=== PATIENT | female | born 1950 | race Caucasian/White ===

== ENCOUNTER 2017-12-25 08:00 | Outpatient (RCR) | payer MEDICARE, OTHER ==
--- NOTE | 2017-12-25 09:32 | RADIOLOGY IMAGING REPORT ---
FACILITY: [facility] PATIENT NAME: May Ying : 1950 MR: [id number] V: [id number] EXAM DATE: ORDERING PHYSICIAN: SERVANOD MORALES TECHNOLOGIST: Location: [facility] Patient: May Ying : 1950 Visit/Account:[id number] Date of Sevice: 12/25/2017 PELVIC HISTORY: Pelvic and perineal pain, family history of ovarian cancer TECHNIQUE: Transabdominal and transvaginal ultrasound pelvis. COMPARISON: January 26, 2016 FINDINGS: Uterus: ; 5.6 cm length x 2.2 cm AP x 3.1 cm transverse. Myometrium: Unremarkable. Endometrium: Thin and homogeneous; double thickness 1.1 mm. Incidentally noted is a 1 cm Fabi's duct cyst in the vagina Cervix: There is a 1.1 x 1.1 x 0.7 cm hypoechoic structure within the cervix with internal echoes pos sibly a debris-filled cyst. Ovaries: Right - 1.3 x 1.6 x 1.2 cm Left - surgically removed Blood flow is documented in the right ovary by duplex Doppler ultrasound. Adnexa: Grossly unremarkable. Free pelvic fluid: None. IMPRESSION: Atrophic uterus and right ovary. Postsurgical changes from a left oophorectomy 1.1 cm Fabi duct cyst in the vagina 1.1 cm hypoechoic structure within the cervix with internal echoes which may represent a debris-fille d cyst Report Dictated By: Bella Zapien MD at 12/25/2017 9:24 AM Report E-Signed By: Bella Zapien MD at 12/25/2017 9:28 AM WSN:[id number]
== END 2017-12-25 18:00 | disposition home or self-care (01) ==
LOC: US 08:00
PROVIDERS: ATTEND Nurse Practitioner Psychiatric/Mental Health
DX: R10.2 Pelvic and perineal pain (principal); N85.8 Other specified noninflammatory disorders of uterus; N83.331 Acquired atrophy of right ovary and fallopian tube; N89.8 Other specified noninflammatory disorders of vagina
CPT/HCPCS: 76856

== ENCOUNTER → 2018-03-12 | Outpatient (CLI) | payer MEDICARE, OTHER ==
--- NOTE | 2018-03-13 10:48 | RADIOLOGY IMAGING REPORT ---
FACILITY: [facility] PATIENT NAME: AUGIE LI : [id number] MR: [id number] V: [id number] EXAM DATE: [id number] ORDERING PHYSICIAN: SERVANDO MORALES TECHNOLOGIST: Lisa Byers PROCEDURE:BILATERAL DIGITAL SCREENING MAMMOGRAM WITH CAD ASSISTED INTERPRETATION & 3D TOMOSYNTHESIS COMPARISON:Prior mammograms 03/06/17, 02/16/16, 02/01/15, 01/28/14, 01/15/13, 01/08/12. INDICATIONS:screening FINDINGS: Moderately dense fibroglandular tissue is seen throughout the breasts. The parenchymal pattern has remained stable allowing for difference in mammographic technique & patient positioning. There is no evidence of malignant appearing mass, malignant appearing calcifications or other secondary sign of malignancy in either breast. DIAGNOSTIC CATEGORY 1--NEGATIVE. RECOMMENDATIONS: ROUTINE MAMMOGRAM AND CLINICAL EVALUATION. IMPRESSION: BIRADS 1: Negative. No significant abnormality is seen. Dictated by: Bella Zapien M.D. on 03/12/2018 at 14:36 Transcribed by: ROBERT on 03/12/2018 at 14:43 Approved by: Bella Zapien M.D. on 03/13/2018 at 10:47 [facility]
== END ==
LOC: MAMO 01:37
PROVIDERS: ATTEND Nurse Practitioner Psychiatric/Mental Health
DX: Z12.31 Encounter for screening mammogram for malignant neoplasm of breast (principal); Z80.3 Family history of malignant neoplasm of breast
CPT/HCPCS: 77063; 77067

== ENCOUNTER → 2018-12-29 | Outpatient (CLI) | payer MEDICARE, OTHER | LOC: LAB 13:20 | PROVIDERS: ATTEND Nurse Practitioner Psychiatric/Mental Health | DX: E55.9 Vitamin D deficiency, unspecified (principal); Z80.41 Family history of malignant neoplasm of ovary | CPT/HCPCS: 36415; 82306; 86304 ==